=== PATIENT | female | born 1960 | race Caucasian/White ===

== ENCOUNTER 2021-09-11 10:13 | Day surgery (SDC) | payer BC ==
[~2021-09-11 10:13] MED LIST: Propofol 200 MG/20 ML SDV ONE; Sodium Chloride 0.9% 10 ML Syringe FLUSH SCH
[2021-09-11] MEDS: Lactated Ringers 1,000 ML IV SCH (10:48)
[2021-09-11] MEDS ORDERED: Propofol 200 MG/20 ML SDV ONE (11:15)
[2021-09-11 15:58] VITALS: BP 135/86; PULSE 72
== END 2021-09-11 12:40 | disposition home or self-care (01) ==
LOC: LL.SDS 10:13
PROVIDERS: ATTEND Surgery
DX: Z12.11 Encounter for screening for malignant neoplasm of colon (principal); F41.9 Anxiety disorder, unspecified; E78.5 Hyperlipidemia, unspecified; E03.9 Hypothyroidism, unspecified; M81.0 Age-related osteoporosis without current pathological fracture; F51.04 Psychophysiologic insomnia; Z86.010 Personal history of colon polyps; Z85.3 Personal history of malignant neoplasm of breast; Z98.890 Other specified postprocedural states
CPT/HCPCS: 45378; J2704; J7120; 00812